=== PATIENT | female | born 1930 | race Caucasian/White ===

== ENCOUNTER 2016-11-28 17:46 | Outpatient (CLI) | payer MEDICARE, OTHER | END 2016-11-28 17:47 | disposition critical access hospital (66) | LOC: EMS 17:46 | PROVIDERS: ATTEND Surgery | DX: R10.9 Unspecified abdominal pain (principal) | CPT/HCPCS: A0425; A0429 ==

== ENCOUNTER 2016-11-28 18:05 | Inpatient (IN) | payer MEDICARE, OTHER ==
[2016-11-28] MEDS ORDERED: HYDROmorphone 1 MG/ML SYRINGE IVP STA ×2 (18:16→21:56)
--- NOTE | 2016-11-28 18:17 | ED Physician Documentation ---
PD HPI ABD PAIN - Stated complaint Stated Complaint: R FLANK PX - Chief complaint Chief Complaint: Abd Pain - History obtained from History obtained from: Patient - History of Present Illness Timing - onset: Other (This is an 86-year-old woman who today has been complaining of right flank pain that is slowly worsening. She doesn't remember if she ate today, maybe some soup, it's not clear if that made her worse. She denies any urinary complaints. She does have chills.) Review of Systems Unable to obtain: Dementia PD PAST MEDICAL HISTORY - Past Medical History Respiratory: Asthma Neuro: Dementia Endocrine/Autoimmune: Type 2 diabetes GI: GERD : None HEENT: Dental implants Psych: None Musculoskeletal: Osteoarthritis, Osteoporosis Derm: None - Past Surgical History Past Surgical History: Yes /GLASS TECHNICIAN/INSTALLER: Breast reduction HEENT: Cataracts, Tonsil/Adenoidectomy - Present Medications Home Medications: Ambulatory Orders Medication Instructions Recorded Confirmed Acetaminophen [Tylenol] 650 mg PO TID 11/28/16 11/28/16 Albuterol Sulfate [Proair Hfa 1 puffs PO QID 11/28/16 11/28/16 Inhaler] Aspirin [Aspirin EC] 81 mg PO DAILY 11/28/16 11/28/16 Benzonatate [Tessalon Perle] 100 mg PO TID 11/28/16 11/28/16 Budesonide/Formoterol Fumarate 1 puffs PO DAILY 11/28/16 11/28/16 [Symbicort 160-4.5 Mcg Inhaler] Calcium Carbonate [Tums (Calcium 500 mg PO BID 11/28/16 11/28/16 Carbonate 500mg)] Ibuprofen [Motrin] 600 mg PO TID 11/28/16 11/28/16 Tramadol HCl 50 mg PO DAILY PM 11/28/16 11/28/16 - Allergies Allergies/Adverse Reactions: Allergies Allergy/AdvReac Type Severity Reaction Status Date / Time Penicillins Allergy Unknown unk Verified 11/24/13 09:45 Sulfa (Sulfonamide Allergy Unknown unk Verified 11/24/13 09:45 Antibiotics) ibuprofen Allergy Respiratory Verified 01/14/13 20:58 - Social History Does the pt smoke?: No Smoking Status: Never smoker Does the pt drink ETOH?: No Does the pt have substance abuse?: No - Family History Family history: reports: Non contributory - Immunizations Immunizations are current?: Yes Immunizations: TDAP >10years/unknown - POLST Patient has POLST: No PD ED PE NORMAL - Vitals Vital signs reviewed: Yes - General General: No acute distress, Well developed/nourished - HEENT HEENT: PERRL, EOMI - Neck Neck: Supple, no meningeal sign, No bony TTP - Cardiac Cardiac: RRR, No murmur - Respiratory Respiratory: No respiratory distress, Clear bilaterally - Abdomen Abdomen: Soft, Other (Tender in the right upper quadrant with positive Wheeler sign) - Extremities Extremities: No edema, No calf tenderness / cord - Neuro Neuro: machine ii trimmer 2-12 intact, Normal speech - Psych Psych: Normal mood, Normal affect Results - Vitals Vitals: Vital Signs - 24 hr 11/28/16 18:07 Temperature 36.6 C Heart Rate 68 Respiratory 20 Rate Blood Pressure 195/72 H O2 Saturation 95 Oxygen O2 Source Room air - Labs Labs: Laboratory Tests 11/28/16 11/28/16 11/28/16 19:12 19:12 19:12 WBC 6.1 RBC 4.04 L Hgb 9.7 L Hct 30.7 L MCV 76.0 L MCH 24.0 L MCHC 31.5 L RDW 17.9 H Plt Count 333 MPV 6.9 L Neut # 3.3 Lymph # 1.6 [place] # 0.7 Eos # 0.3 Baso # 0.1 Absolute Nucleated RBC 0.00 Nucleated RBCs 0.0 PT 10.9 INR 1.0 Sodium 136 Potassium 4.3 Chloride 101 Carbon Dioxide 28 Anion Gap 7.0 BUN 21 H Creatinine 1.0 Estimated GFR (MDRD) 53 L Glucose 114 H Calcium 9.0 Total Bilirubin 0.4 AST 20 ALT 42 Alkaline Phosphatase 151 H Total Protein 7.0 Albumin 3.6 Globulin 3.4 Albumin/Globulin Ratio 1.1 Lipase 27 PD MEDICAL DECISION MAKING - ED course ED course: 86-year-old woman presents with right flank pain which on exam is likely biliary source with persistent right upper quadrant pain and a Wheeler's sign. Her son tells me that she had been told perhaps 6 months ago that she needed to have her gallbladder out but at the time refused. She does have gallstones but no evidence of cholecystitis. Advanced age and persistent tenderness after the administration of narcotic analgesia I think she would be a good candidate to bring in the hospital on IV antibiotics for interval cholecystectomy and the patient and family were agreeable. I spoke with Dr. Cannon, the on-call surgeon for this at 818 p.m. Departure - Departure Disposition: ED Place in Observation Clinical Impression: Biliary colic
[2016-11-28] MEDS ORDERED: HYDROmorphone 1 MG/ML SYRINGE ONE ×3 (19:02→22:57)
[2016-11-28 19:24] LABS: BASOPHILS # (AUTO) 0.1 10^3/uL (0.0-0.1); BASOPHILS % (AUTO) 1.7 %; EOSINOPHILS # (AUTO) 0.3 10^3/uL (0.0-0.7); EOSINOPHILS % (AUTO) 5.7 %; HCT - HEMATOCRIT 30.7 % (37.0-47.0); HGB - HEMOGLOBIN 9.7 g/dL (12.0-16.0); LYMPHOCYTES # (AUTO) 1.6 10^3/uL (1.5-3.5); LYMPHOCYTES % (AUTO) 26.4 %; MEAN CORPUSCULAR HGB CONC 31.5 g/dL (32.0-36.0); MEAN PLATELET VOLUME 6.9 fL (7.9-10.8); MONOCYTES # (AUTO) 0.7 10^3/uL (0.0-1.0); MONOCYTES % (AUTO) 11.5 %; NEUTROPHILS # (AUTO) 3.3 10^3/uL (1.5-6.6); NEUTROPHILS % (AUTO) 54.7 %; RED BLOOD COUNT 4.04 10^6/uL (4.20-5.40); RED CELL DISTRIBUTION WIDTH 17.9 % (12.0-15.0); UNCORRECTED WHITE BLOOD COUNT 6.1 x10^3/uL; WHITE BLOOD COUNT 6.1 x10^3/uL (4.8-10.8)
[2016-11-28 19:34] LABS: ALBUMIN/GLOBULIN RATIO 1.1 (1.0-2.2); BILIRUBIN,TOTAL 0.4 mg/dL (0.2-1.0); POTASSIUM 4.3 mmol/L (3.5-5.0)
[2016-11-28 19:42] LABS: PT - PROTHROMBIN TIME 10.9 secs (9.9-12.6)
--- NOTE | 2016-11-28 20:02 | Ultrasound Preliminary Report ---
Exam: US Abdomen Limited IMPRESSION: 1. Multiple cholelithiasis without wall thickening or ductal dilatation. 2. Hepatic steatosis. [facility] SITE ID: [id number]
--- NOTE | 2016-11-28 20:06 | Ultrasound Report ---
EXAM: ABDOMEN ULTRASOUND LIMITED, RUQ EXAM DATE: 11/28/2016 07:33 PM. CLINICAL HISTORY: Right flank pain with RUQ TTP. COMPARISON: None. TECHNIQUE: Real-time scanning was performed with static images obtained. FINDINGS: Liver: Normal in size. Echogenic and heterogeneous echotexture. 16 cm. Main portal vein flow: Hepatop etal. Gallbladder: Tiny mobile gallstones. No wall thickening or point tenderness. Biliary System: CBD measures 7 mm. No intrahepatic or extrahepatic ductal dilatation. Other: Upper pole right renal cyst noted 3.9 x 3.8 x 4.0 cm. No hydronephrosis. No free fluid. IMPRESSION: 1. Multiple cholelithiasis without wall thickening or ductal dilatation. 2. Hepatic steatosis. [facility] Referring Provider Line: [phone] SITE ID: [id number]
[2016-11-29] MEDS ORDERED: SODIUM CHLORIDE FLUSH 0.9% 10 ML SYRINGE IVP PRN (00:02)
[2016-11-29] MEDS ORDERED: KETOROLAC 15 MG/ML VIAL IVP PRN (00:17)
[2016-11-29 01:00] VITALS: BP 166/74
[2016-11-29] MEDS ORDERED: LACTATED RINGERS 1,000 ML IV SCH ×2 (01:00→13:00)
[2016-11-29] MEDS ORDERED: ALBUTEROL 8 GM INHALER INH SCH ×2 (01:00→09:00)
[2016-11-29] MEDS: ACETAMINOPHEN 1,000 MG/100 ML 100 ML IV SCH ×3 (01:07→12:15)
[2016-11-29] MEDS ORDERED: IOPAMIDOL-300 100 ML VIAL IVP ONE (03:45)
[2016-11-29] MEDS ORDERED: IOVERSOL-300 50 ML VIAL PO ONE (03:46)
--- NOTE | 2016-11-29 04:06 | CT Preliminary Report ---
Exam: CT Abdomen/Pelvis W/ IMPRESSION: 1. Right ninth and 10th rib fractures. 2. Moderate hiatal hernia with gastroesophageal reflux. 3. Fatty liver. 4. Appendix appears normal. 5. Colonic diverticula. No diverticulitis identified. [facility] SITE ID: [id number]
--- NOTE | 2016-11-29 04:09 | XRAY Preliminary Report ---
Exam: XR Chest 2 View PA/LAT IMPRESSION: 1. Borderline heart size and bibasilar atelectasis. 2. Right ninth and 10th rib fractures noted on abdomen CT are not well seen on the chest radiograph. [facility] SITE ID: [id number]
--- NOTE | 2016-11-29 04:09 | CT Report ---
EXAM: CT ABDOMEN AND PELVIS EXAM DATE: 11/29/2016 03:51 AM. CLINICAL HISTORY: Abdominal pain, RUQ, Left flank. COMPARISONS: Ultrasound, 11/28/2016. CT, 01/14/2013. TECHNIQUE: Routine helical CT imaging was performed through the abdomen and pelvis. IV contrast: Coreen onic. Enteric contrast: Yes. Reconstructions: Coronal and sagittal. In accordance with CT protocol optimization, one or more of the following dose reduction techniques w ere utilized for this exam: automated exposure control, adjustment of mA and/or KV based on patient s ize, or use of iterative reconstructive technique. FINDINGS: Lung Bases: Bibasilar atelectasis. Cardiomegaly. Coronary artery calcifications. Moderate hiatal sisi ia. Gastroesophageal reflux. Liver: Fatty infiltration. Gallbladder/Bile Ducts: No obvious acute abnormality. Gallstones seen on the prior ultrasound are pre sumably noncalcified, and not well seen. Spleen: Normal. Pancreas: Normal. Adrenal Glands: Normal. Kidneys: Right renal cyst measuring 4.8 cm. Bilateral parapelvic cysts. No masses or hydronephrosis. Peritoneal Cavity/Bowel: Colonic diverticula. No definite diverticulitis. No bowel obstruction seen. No free air or free fluid. No lymphadenopathy. Moderate stool in the right hemicolon. Appendix is ret rocecal and appears normal. Pelvic Organs: Normal. The bladder and visualized pelvic organs are within normal limits. Vasculature: Moderate atherosclerosis. No aortic aneurysm. Bones: Osteopenia. Fractures of the right ninth and 10th ribs. Degenerative changes in the lumbar spi ne. Scoliosis. Other: None. IMPRESSION: 1. Right ninth and 10th rib fractures. 2. Moderate hiatal hernia with gastroesophageal reflux. 3. Fatty liver. 4. Appendix appears normal. 5. Colonic diverticula. No diverticulitis identified. [facility] Referring Provider Line: [phone] SITE ID: [id number]
--- NOTE | 2016-11-29 04:11 | XRAY Report ---
EXAM: CHEST RADIOGRAPHY EXAM DATE: 11/29/2016 03:18 AM. CLINICAL HISTORY: Right lower chest wall tenderness. COMPARISON: 04/21/2016. TECHNIQUE: 2 views. FINDINGS: Lungs/Pleura: Small lung volumes. Bibasilar atelectasis. No definite alveolar consolidation or pleura l effusion. No pneumothorax. Mediastinum: Heart size upper normal. Other: Osteopenia. Multiple old thoracic compression fractures. Degenerative changes in the shoulders . Old right clavicle fracture. Right ninth and 10th rib fractures noted on CT are not well seen. IMPRESSION: 1. Borderline heart size and bibasilar atelectasis. 2. Right ninth and 10th rib fractures noted on abdomen CT are not well seen on the chest radiograph. [facility] Referring Provider Line: [phone] SITE ID: [id number]
[2016-11-29] MEDS ORDERED: SODIUM CHLORIDE FLUSH 0.9% 10 ML SYRINGE IVP SCH (06:00)
[2016-11-29] MEDS ORDERED: ACETAMINOPHEN 1,000 MG/100 ML 100 ML IV ONE (06:03)
[2016-11-29 06:17] LABS: BASOPHILS # (AUTO) 0.1 10^3/uL (0.0-0.1); BASOPHILS % (AUTO) 1.4 %; EOSINOPHILS # (AUTO) 0.4 10^3/uL (0.0-0.7); EOSINOPHILS % (AUTO) 5.5 %; HCT - HEMATOCRIT 29.6 % (37.0-47.0); HGB - HEMOGLOBIN 9.5 g/dL (12.0-16.0); LYMPHOCYTES # (AUTO) 1.7 10^3/uL (1.5-3.5); MEAN CORPUSCULAR HEMOGLOBIN 24.4 pg (27.0-31.0); MEAN CORPUSCULAR HGB CONC 32.1 g/dL (32.0-36.0); MEAN CORPUSCULAR VOLUME 76.2 fL (81.0-99.0); MEAN PLATELET VOLUME 6.8 fL (7.9-10.8); MONOCYTES # (AUTO) 0.7 10^3/uL (0.0-1.0); NEUTROPHILS # (AUTO) 3.7 10^3/uL (1.5-6.6); NEUTROPHILS % (AUTO) 56.1 %; NUCLEATED RED BLOOD CELLS AUTO 0.1 /100WBC; RED BLOOD COUNT 3.89 10^6/uL (4.20-5.40); UNCORRECTED WHITE BLOOD COUNT 6.6 x10^3/uL; WHITE BLOOD COUNT 6.6 x10^3/uL (4.8-10.8)
[2016-11-29 06:29] LABS: ALBUMIN/GLOBULIN RATIO 1.1 (1.0-2.2); BILIRUBIN,TOTAL 0.6 mg/dL (0.2-1.0); CALCIUM 8.7 mg/dL (8.5-10.3)
[2016-11-29] MEDS ORDERED: BUDESONIDE 0.5 MG/2 ML NEB INH SCH (07:00)
[2016-11-29] MEDS ORDERED: BUDESONIDE/FORMOTEROL 160/4.5 MCG INHALER INH SCH ×2 (07:00)
[2016-11-29] MEDS ORDERED: ALBUTEROL NEB 2.5 MG/3 ML INH SCH (07:00)
[2016-11-29] MEDS ORDERED: FORMOTEROL FUMARATE NEB 20 MCG/2 ML INH SCH (07:00)
[2016-11-29] MEDS ORDERED: HEPARIN 5,000 UNIT/ML VIAL SUBQ SCH (09:00)
[2016-11-29] MEDS ORDERED: CALCIUM CARBONATE CHEW 500 MG TABLET PO SCH ×2 (09:00)
[2016-11-29] MEDS ORDERED: POLYETHYLENE GLYCOL 3350 17 GM PACKET PO SCH (09:00)
--- NOTE | 2016-11-29 09:40 | PROVIDER PROGRESS NOTE ---
Assessment/Plan - Problem List (1) Abdominal pain Qualifiers: Abdominal location: right upper quadrant Qualified Code(s): R10.11 - Right upper quadrant pain Assessment/Plan: 86 yo female with history of symptomatic cholelithiasis and hx of recent falls with right rib fractures & sternal fracture, hx of COPD, DM, found to have anemia and Alk phos elevation, Hypertension. Pain at this may be from gallstones or from rib fx. HIDA is needed. Will continue to keep comfortable with pain medications Will advance diet to see if she tolerates. Will continue current medications. Medical team on case appreciated. Will begin covering blood pressure with Hydralazine 10mg q4 prn SBP>160 Patient will be transferred to [facility] which has HIDA, and a surgeon that has been following this patient for gallstone disease. - Current Meds Current Meds: Current Medications Generic Name Dose Route Start Last Admin Trade Name Freq PRN Reason Stop Dose Admin Albuterol 2.5 mg 11/29/16 07:00 11/29/16 07:14 INH 2.5 mg RTQID MAXX Administration Budesonide 0.5 mg 11/29/16 07:00 11/29/16 07:14 Pulmicort INH 0.5 mg RTBID MAXX Administration Calcium Carbonate/Glycine 500 mg 11/29/16 09:00 11/29/16 09:24 Tums PO 500 mg BID MAXX Administration Formoterol Fumarate 20 mcg 11/29/16 07:00 11/29/16 07:14 Perforomist INH 20 mcg RTBID MAXX Administration Lactated Ringer's 1,000 mls @ 100 mls/hr 11/29/16 01:00 11/29/16 01:07 Lr IV 100 mls/hr .Q10H MAXX Administration Acetaminophen 100 mls @ 400 mls/hr 11/29/16 01:00 11/29/16 06:16 Ofirmev IV 12/01/16 00:59 400 mls/hr Q6H MAXX Administration Polyethylene Glycol 17 gm 11/29/16 09:00 11/29/16 09:24 Miralax PO 17 gm DAILY MAXX Administration Sodium Chloride 10 ml 11/29/16 06:00 11/29/16 06:42 Normal Saline Flush 0.9% IVP Not Given Q8HR MAXX - Lab Result Fish Bone Diagrams: 11/29/16 06:05 11/29/16 06:05 - Diagnostic Imaging Results Diagnostic Imaging Results: positive: Read contemporaneously - Additional Planning Condition/Complexity: Improved My Orders: My Active Orders 11/29/16 Hospitalist Consult [CONS] Routine Hepatobiliary HIDA w/ Rx [NM] Stat 11/29/16 00:02 Activity Orders [RC] Routine IO [RC] IOSHIFT Initiate Bowel Care Protocol [RC] QSHIFT Initiate Flu Vaccine Screening [RC] .once Initiate Line Care Protocol [RC] QSHIFT Initiate Personal Care Protoco [RC] QSHIFT Initiate Pneumonia Vaccine Scr [RC] .once Oxygen Therapy [RC] Routine Vital Signs [RC] Q8HR Sodium Chloride Flush 0.9% [Normal Saline Flush 0.9%] 10 ml IVP PRN PRN Code Status [OTHERS] Routine Condition of Patient [OTHERS] Routine DVT Prophylaxis [OTHERS] Routine 11/29/16 00:04 SCDs [RC] QSHIFT 11/29/16 00:11 Preop Surgical Checklist [RC] Routine 11/29/16 00:12 Blood Glucose POC [RC] 0000,0600,1200,1800 11/29/16 00:16 Resp Teach Nebulizer/MDI [RC] .ONCE ED Nebulizer/MDI Tx. ONCE 11/29/16 00:17 Ketorolac Inj [Toradol Inj] 15 mg IVP Q6HR PRN 11/29/16 00:37 Message to Nursing [RC] QSHIFT 11/29/16 00:39 Notify Provider - VS Parameter [RC] PRN 11/29/16 00:41 Oxygen Therapy [RC] PRN 11/29/16 01:00 Acetaminophen 1,000 mg/100 ml [Ofirmev] 100 ml IV Q6H Lactated Ringers [Lr] 1,000 ml IV 100 mls/hr 11/29/16 01:13 Nebulizer [Nebulizer/MDI Tx.] [RC] .QID & BID 11/29/16 06:00 Sodium Chloride Flush 0.9% [Normal Saline Flush 0.9%] 10 ml IVP Q8HR 11/29/16 07:00 Echo Transthoracic Complete [ECHO] Routine Albuterol 2.5 mg INH RTQID Budesonide [Pulmicort] 0.5 mg INH RTBID Formoterol Fumarate [Perforomist] 20 mcg INH RTBID 11/29/16 09:00 Calcium Carbonate [Tums] 500 mg PO BID Heparin 5,000 unit SUBQ BID Polyethylene Glycol 3350 [Miralax] 17 gm PO DAILY 11/30/16 00:01 NPO except Meds [DIET] 11/30/16 05:00 CBC - COMP BLD CT W/AUTO DIFF [HEME] DAILYLAB COMPREHENSIVE METABOLIC PANEL [CHEM] DAILYLAB 12/01/16 05:00 CBC - COMP BLD CT W/AUTO DIFF [HEME] DAILYLAB Consult/Specialty: Internal Medicine Plan Discussed with:: Patient, Family Time Spent: Greater than 60 minutes Subjective - Subjective Patient Reports: Resting Comfortably (Patient seen at bedside, she now recalls that the pain began after she fell 3 weeks ago. She denies any vomiting or other issues overnight. She is hungry and would like to eat. Afebrile. Patient' s blood pressure has been elevated while in hospital. No overnight events reported) Objective Vital Signs: Vital Signs - 24 hr 11/29/16 11/29/16 11/29/16 01:00 07:19 09:17 Temperature 36.6 C 36.7 C Heart Rate 84 Heart Rate [ 73 67 Brachial] Respiratory 18 20 16 Rate Blood Pressure 166/74 H 166/74 H [Left Brachial artery] O2 Saturation 96 96 Oxygen O2 Source Room air I&O (Last 24 Hrs): Intake and Output Totals x24h 11/27/16 11/28/16 11/29/16 23:59 23:59 23:59 Intake Total 800 Balance 800 - Results Results: Laboratory Results WBC 6.6 x10^3/uL (4.8-10.8) 11/29/16 06:05 RBC 3.89 10^6/uL (4.20-5.40) L 11/29/16 06:05 Hgb 9.5 g/dL (12.0-16.0) L 11/29/16 06:05 Hct 29.6 % (37.0-47.0) L 11/29/16 06:05 MCV 76.2 fL (81.0-99.0) L 11/29/16 06:05 MCH 24.4 pg (27.0-31.0) L 11/29/16 06:05 MCHC 32.1 g/dL (32.0-36.0) 11/29/16 06:05 RDW 18.0 % (12.0-15.0) H 11/29/16 06:05 Plt Count 339 10^3/uL (130-450) 11/29/16 06:05 MPV 6.8 fL (7.9-10.8) L 11/29/16 06:05 Neut # 3.7 10^3/uL (1.5-6.6) 11/29/16 06:05 Lymph # 1.7 10^3/uL (1.5-3.5) 11/29/16 06:05 Real # 0.7 10^3/uL (0.0-1.0) 11/29/16 06:05 Eos # 0.4 10^3/uL (0.0-0.7) 11/29/16 06:05 Baso # 0.1 10^3/uL (0.0-0.1) 11/29/16 06:05 Absolute Nucleated RBC 0.01 x10^3/uL 11/29/16 06:05 Nucleated RBCs 0.1 /100WBC 11/29/16 06:05 PT 10.9 secs (9.9-12.6) 11/28/16 19:12 INR 1.0 (0.8-1.2) 11/28/16 19:12 Sodium 134 mmol/L (135-145) L 11/29/16 06:05 Potassium 4.0 mmol/L (3.5-5.0) 11/29/16 06:05 Chloride 102 mmol/L (101-111) 11/29/16 06:05 Carbon Dioxide 25 mmol/L (21-32) 11/29/16 06:05 Anion Gap 7.0 (6-13) 11/29/16 06:05 BUN 19 mg/dL (6-20) 11/29/16 06:05 Creatinine 1.0 mg/dL (0.4-1.0) 11/29/16 06:05 Estimated GFR (MDRD) 53 (>89) L 11/29/16 06:05 Glucose 103 mg/dL (70-100) H 11/29/16 06:05 Calcium 8.7 mg/dL (8.5-10.3) 11/29/16 06:05 Total Bilirubin 0.6 mg/dL (0.2-1.0) 11/29/16 06:05 AST 24 IU/L (10-42) 11/29/16 06:05 ALT 39 IU/L (10-60) 11/29/16 06:05 Alkaline Phosphatase 152 IU/L (42-121) H 11/29/16 06:05 Total Protein 7.0 g/dL (6.7-8.2) 11/29/16 06:05 Albumin 3.6 g/dL (3.2-5.5) 11/29/16 06:05 Globulin 3.4 g/dL (2.1-4.2) 11/29/16 06:05 Albumin/Globulin Ratio 1.1 (1.0-2.2) 11/29/16 06:05 Lipase 27 U/L (22-51) 11/28/16 19:12 Blood Type A POSITIVE 11/29/16 06:05 Blood Type Recheck A POSITIVE 11/29/16 06:00 Antibody Screen NEGATIVE 11/29/16 06:05
[2016-11-29] MEDS ORDERED: hydrALAZINE INJ 20 MG/ML VIAL IVP PRN (11:28)
[2016-11-29] MEDS ORDERED: ENOXAPARIN 40 MG/0.4 ML SYRINGE SUBQ SCH (12:00)
[2016-11-29 12:04] LABS: HEMOGLOBIN A1C 0.39 g/dL
[2016-11-29] MEDS ORDERED: IBUPROFEN 600 MG TABLET PO PRN (12:28)
[2016-11-29] MEDS ORDERED: BENZONATATE 100 MG CAPSULE PO PRN (12:28)
--- NOTE | 2016-11-29 12:33 | Discharge Plan ---
Discharge Plan Disposition: 02 Transfer Acute Care Hosp Condition: Fair Diet: Diabetic (Currently NPO) Activity Restrictions: Activity as Tolerated Shower Restrictions: No Driving Restrictions: No Weight Bearing: Full Weight No Smoking: If you smoke, Please STOP! Call for help.
--- NOTE | 2016-11-29 13:50 | CONSULTATION NOTE ---
DATE OF CONSULTATION: 11/29/2016 00:00:00 REQUESTING PROVIDER: Neptali Cannon MD CHIEF COMPLAINT: Abdominal pain. REASON FOR CONSULTATION: For medical management with possible cholelithiasis and bilateral rib fractu res status post fall at home. HISTORY OF PRESENT ILLNESS: The patient is an 86-year-old elderly female who lives at home alone who was in her usual state of health at her home assisted living facility when she fell in the bathroom o nto her right side and ended up with right rib and sternal fractures. The patient has a history of [place] PD, diabetes mellitus, hiatal hernia, and frequent falls. The patient also has had complaint of abdom inal pain and flank pain for the last 6 months. Patient has had the abdominal pain evaluated at [facility] approximately 5 months ago. She was told by surgeons there that she had gallstones in the gallbladder and it needed to be taken out. Patient's most recent CT at [facility] showed gallsto grady, and CT that was performed in the ER at [facility] did show cholelithiasis. The patient was evaluated at bedside. She has slight dementia and continued to express concern for th e falls that she has been having at home and for the pain that she is having on her right side due to the fall that she had in her bathroom approximately a week ago. She denies nausea or vomiting. She s tates that she has been hungry because they have made her n.p.o. for a possible HIDA scan this mornin g. The patient has multiple bruising up and down upper right and left extremities. She states that sh e has been falling a lot lately. She states that she does live alone. She is in a fdc fac ility at this time. She has 2 children. Her son, Tam Blancas, is her power of athletic director. The patient i s a for approximately 30 years. At bedside, patient denied chest pain or shortness of breath. She did have pain with palpation to the right upper quadrant and flank. She does have rib fractures as noted on x-ray. These rib fractures w ere on the right side and she does have old fractures to the left side from fall as well. The patient has been taking tramadol for her pain. Patient's vital signs have been stable since she has been adm itted. She states the last time that she ate was yesterday morning when she had some toast. The abbye davin states that she just wants to be able to eat and to be transferred back to [facility]. Upon evaluation of the ER note and medical records, it was noted that patient is a FULL CODE. She payne s have a history of GERD, hiatal hernia, and diabetes, along with COPD and asthma. She is pending a H GAURAV scan this morning. After speaking with Dr. Cannon, Surgery, he states that the HIDA scan cannot be performed until Sun. The patient is seeming to be unsafe while at home since she is frequent falls. Recommendation be that patient work with Physical and Occupational Therapy to be evaluated before going home. At this time, patient has no white count, no fever, no nausea or vomiting; however, she does have gal n to that right upper quadrant. Questionable whether this pain is due to the rib fractures or the gal lbladder. Per Dr. Cannon, she will start on a clear liquid diet to see if she tolerates that, and i f so will be pending HIDA scan as outpatient. Per Dr. Cannon at approximately 12 noon, patient was pending transfer per Surgery for acceptance at [facility] for a HIDA scan and potential surgery for cholelithiasis. At this time, patient's vi dex signs have been stable. She will need continuous monitoring with PT evaluation, as well as surgic al consult. ALLERGIES 1. DOXYCYCLINE. 2. PENICILLIN. 3. SULFA. 4. NAPROXEN. 5. MACROLIDES. 6. HYDROCODONE. 7. IBUPROFEN. HOME MEDICATIONS 1. Tylenol. 2. Albuterol sulfate. 3. Aspirin. 4. Tessalon Perles. 5. Symbicort. 6. Calcium carbonate. 7. Ibuprofen. 8. Tramadol. PAST MEDICAL HISTORY: Includes dementia, type 2 diabetes, GERD, hiatal hernia, dental implants, osteo arthritis, osteoporosis, asthma, COPD. PAST SURGICAL HISTORY: Breast reduction, tonsillectomy, adenoidectomy, cataract surgery. PAST FAMILY AND SOCIAL HISTORY: Mother is , unknown cause of . Father is . Yanna jin does live in assisted living, [facility]. She has a son and a daughter, both living, and she is a for approximately 30 years. She does live alone. She denies using alcohol or any substance ab use or illegal substance abuse. She is a past smoker. Patient does have a FULL CODE POLST status. She does not have a POLST on file. REVIEW OF SYSTEMS: Ten system have been reviewed and are negative with exceptions as discussed in the HPI prior. She is positive for abdominal pain and right upper flank pain. Negative for nausea, vomit ing, diarrhea, chest pain, shortness of breath, numbness, tingling to extremities, hematuria, dysuria , or black tarry stools. PHYSICAL EXAMINATION CONSTITUTIONAL: Patient is alert, in no acute distress. EYES: Pupils equal, round and react to light and accommodation. Conjunctivae and sclerae are nonicter ic, not injected. ENT: Nares are patent. No nasal discharge. Dry mucous membranes. NECK: Supple. No thyromegaly. RESPIRATORY: Breath sounds are clear and equal bilaterally to auscultation and percussion, no retract ions or nasal flaring. Tenderness with palpation over right lower chest wall. CARDIOVASCULAR: Regular rate and rhythm. S1, S2 noted. Normal PMI. No JVD. GENITOURINARY: No CVA tenderness. No masses palpated. No bladder distention. MUSCULOSKELETAL/EXTREMITIES: No cyanosis, 2+ peripheral pulses to upper and lower extremities. Romana castellanos is able to move upper and lower extremities without difficulty. She does have mild edema to bilater al knees primarily to the left. HEMATOLOGIC: Multiple bruising, old and new, to upper and lower extremities from multiple falls. Abby ent is hemodynamically stable. No active bleeding. SKIN: Warm, dry, intact. Normal turgor. No evidence of rashes, lesions, or cellulitis. NEUROLOGIC: GCS 15. She is alert. Cranial nerves unable to be assessed due to patient's continuation of repeating herself and inability to follow commands. She was able to lift her eyebrows and stick ou t her tongue and automotive sales manager my hands bilaterally. GASTROINTESTINAL: Abdomen was soft, nontender. Bowel sounds were present. Nondistended, obese. She di d have right upper quadrant pain with palpation, positive Wheeler's sign, no rebound. No masses were p alpated. VITAL SIGNS: Temperature is 36.7, pulse 74, respirations 20, blood pressure 145/48, pulse oximetry 99 % on room air. LABORATORY AND DIAGNOSTIC DATA LABORATORY DATA: Sodium was 134, potassium 4.0, chloride 102, BUN 19, creatinine 1, glucose 103, GFR 53. Alkaline phosphatase is 152. WBC is 6.6, hemoglobin 9.5, hematocrit 29.6. DIAGNOSTICS Abdomen ultrasound. Impression showed multiple cholelithiasis without wall thickening or ductal dilat ation, hepatic steatosis. Patient does have a tiny mobile gallstones with no wall thickening or point tenderness per ultrasound. Abdomen and pelvis CT. Impression showed right 9th and 10th rib fractures, moderate hiatal hernia wit h gastroesophageal reflux, fatty liver, appendix appears normal and colonic diverticula, no diverticu litis identified. The patient does show osteopenia with degenerative changes in the lumbar spine and scoliosis. Chest x-ray. Impression shows borderline heart size and bibasilar atelectasis, right 9th and 10th rib fractures noted on abdominal CT are not well seen on the chest radiograph. No signs of pneumothorax. IMPRESSION AND PLAN 1. Acute fall, same level, in bathroom at home with 9th and 10th right-sided rib fractures and sterna l fracture. RECOMMENDATION: Patient should be monitored closely for falls. She will need assist, Physical and Occ upational Therapy recommended. Continue to monitor alkaline phosphatase and pain control. Patient payne s take tramadol at this time. Would recommend continuing. 2. Acute right upper quadrant abdominal pain with symptomatic cholelithiasis as shown on CT. RECOMMENDATION: Continue with pain management/pain control. Recommend HIDA scan. This can be done eit her as outpatient, but if there is need for transfer, recommending transfer to be done sooner. Contin ue to monitor for nausea and vomiting. Recommend change of diet to be low fat or bland diet. IV fluid rehydration recommended. Continue to monitor labs. If patient is not to have HIDA scan today, would recommend feeding her since she has expressed significant concerns for being hungry. Would continue h ome medications; however, recommend holding the Motrin at this time, but continue with tramadol, Tums , and her respiratory therapy treatments. 3. Chronic obstructive pulmonary disease without exacerbation. PLAN: Continue all respiratory therapy treatment as prescribed. 4. Chronic dementia, unspecified. RECOMMENDATION: I would seek spiritual counselor with the son or the daughter since patient is not able to unders tand her own health care and benefits regarding her care. This will be specifically for if she needed transfer or pending surgery. Time spent with patient was about 40 minutes at bedside for education, planning, and assessment. I want to think you for your kind referral. We will follow with you. Should patient plan to transfer, please do not hesitate to contact us regarding further information needed for transfer. JOB #: [id number] EXT JOB #:[id number]
[2016-11-29] MEDS ORDERED: traMADol 50 MG TABLET PO SCH (21:00)
[2016-11-30] MEDS ORDERED: PANTOPRAZOLE 40 MG TABLET PO SCH (07:00)
[2016-11-30] MEDS ORDERED: ASPIRIN EC 81 MG TABLET PO SCH (09:00)
[2016-11-30] MEDS ORDERED: LORATADINE 10 MG TABLET PO SCH (09:00)
[2016-11-30] MEDS ORDERED: CALCIUM CITRATE 250 MG TABLET PO SCH (09:00)
--- NOTE | 2016-11-30 16:59 | DISCHARGE SUMMARY ---
DATE OF ADMISSION: 11/28/2016 DATE OF DISCHARGE: 11/29/2016 ATTENDING PHYSICIAN: Neptali Cannon DO. FINAL DIAGNOSIS: Abdominal pain, symptomatic cholelithiasis versus right rib fractures. CONDITION ON TRANSFER: Fair. TRANSFER LOCATION: [place], [place]. HISTORY OF PRESENT ILLNESS: This is an 86-year-old female from an assisted living facility with history of COPD, diabetes, hiatal hernia and history of falls with a sternal and right rib fractures. She complained of right upper abdominal and flank pain x6 months. She reports that she went to [facility] in June 2016 and was told by surgeons there that she had gallstones and should have her gallbladder taken out. Her pain ranges from 3-8/ 10. She has right flank, nonradiating, intermittent, crampy, sometimes sharp pain. She denies any nausea or vomiting. She denies any fevers or changes in her appetite. She recalls that her most recent fall was in 11/07/2016 and has had multiple falls around that time. A CT scan on 11/07/2016 done at [facility] showed right-sided rib fractures, for which she was given tramadol and sent home. She has denied any other falls or history or other recent trauma since that time, but did state that her abdominal pain began after the fall. TRANSFER MEDICATIONS: The patient was transferred with IV fluids LR @80 ml/hr and her home medications consists of 1. Tylenol 650 mg p.o. t.i.d.. 2. Albuterol sulfate 1 puff p.o. q.i.d. 3. Baby aspirin 81 mg p.o. daily. 4. Tessalon Perles 100 mg p.o. t.i.d. 5. Symbicort 160/4.5 mcg inhaler 1 puff p.o. daily. 6. Calcium carbonate 500 mg p.o. b.i.d.. 7. Motrin 600 mg p.o. t.i.d.. 8. Tramadol HCL 50 mg p.o. daily. ALLERGIES: 1. PENICILLIN WITH A REACTION UNKNOWN. 2. SULFA WITH THE REACTION UNKNOWN. 3. ALENDRONATE SODIUM WITH THE REACTION UNKNOWN. 4. HYDROCODONE WITH THE REACTION UNKNOWN. 5. IBUPROFEN WITH A REACTION CAUSING RESPIRATORY PROBLEMS. 6. MACROLIDE ANTIBIOTICS UNKNOWN. 7. NAPROXEN REACTION UNKNOWN. LABORATORY DATA: Her WBC on admission was 6.1, her H and H on admission was 9.7/ 30.7, she had a bun of 21 and a creatinine of 1. Her alkaline phosphatase was 151, AST was 20, ALT was 42. Total bilirubin was 0.4, lipase was 27. She had an ultrasound on 11/28/2016, which showed multiple cholelithiasis without wall thickening or ductal dilation and hepatic steatosis. CBD measured [address] scan performed of the abdomen and pelvis on 11/29/2016 showed right 9th and 10th rib fractures, moderate hiatal hernia with gastroesophageal reflux , fatty liver, appendix normal appearing, colonic diverticula without diverticulitis. HOSPITAL COURSE: The patient was admitted to the surgical service for pain control, IV fluid hydration was given, tramadol and IV Tylenol was also given. The exact etiology of the patients pain was not entirely clear, and it was deemed that a HIDA scan would clarify the reason for her pain. Unfortunately [facility] did not have HIDA scan available until 12/01/16. The patient and the patient's daughter stated that they wanted the patient to be transferred to another facility due to the need of a HIDA scan, which this hospital did not offer. [facility] surgeon had previously been following the patient and after discussion with the Surgeon there, it was determined that HIDA scan was immediately available. The surgeon at [facility], Dr. Shi, agreed to the transfer. The patient was subsequently transferred from [facility] to [facility] where the Surgeon's at [facility] continued care of the patient. JOB #: [id number] [facility] JOB #:[id number] [facility]
== END 2016-11-29 13:10 | disposition short-term general hospital (02) | DRG 445 ==
LOC: EDUNIT# → ED 18:05 → MS 23:59
PROVIDERS: ADMIT Surgery; ATTEND Surgery
DX: K80.50 Calculus of bile duct without cholangitis or cholecystitis without obstruction (principal); K80.20 Calculus of gallbladder without cholecystitis without obstruction; S22.41XA Multiple fractures of ribs, right side, initial encounter for closed fracture; W18.30XA Fall on same level, unspecified, initial encounter; E11.9 Type 2 diabetes mellitus without complications; J44.9 Chronic obstructive pulmonary disease, unspecified; F03.90 Unspecified dementia, unspecified severity, without behavioral disturbance, psychotic disturbance, mood disturbance, and anxiety; I10 Essential (primary) hypertension; K21.9 Gastro-esophageal reflux disease without esophagitis; K44.9 Diaphragmatic hernia without obstruction or gangrene; M19.90 Unspecified osteoarthritis, unspecified site; M81.0 Age-related osteoporosis without current pathological fracture; S80.12XD Contusion of left lower leg, subsequent encounter; S80.11XD Contusion of right lower leg, subsequent encounter; S40.022D Contusion of left upper arm, subsequent encounter; S40.021D Contusion of right upper arm, subsequent encounter; Z91.81 History of falling; Z79.82 Long term (current) use of aspirin; Z79.51 Long term (current) use of inhaled steroids; Z79.899 Other long term (current) drug therapy; Z98.890 Other specified postprocedural states; Y93.9 Activity, unspecified; Y92.121 Bathroom in nursing home as the place of occurrence of the external cause; Y99.9 Unspecified external cause status; Z87.891 Personal history of nicotine dependence
CPT/HCPCS: 36415; 71020; 74177; 76705; 80053; 83036; 83690; 85025; 85610; 86850; 86900; 86901; 93005; 93306; 94640; 96374; 96376; 99284; 99285

== ENCOUNTER 2016-11-29 13:18 | Outpatient (CLI) | payer MEDICARE, OTHER | END 2016-11-29 13:19 | disposition short-term general hospital (02) | LOC: EMS 13:18 | PROVIDERS: ATTEND Surgery | DX: K80.20 Calculus of gallbladder without cholecystitis without obstruction (principal) | CPT/HCPCS: A0425; A0428 ==